=== PATIENT | female | born 1955 | race Caucasian/White ===

== ENCOUNTER 2017-09-01 20:54 | Inpatient (IN) | payer MEDICARE ==
[2017-09-01 21:11] VITALS: BP 190/87; PULSE 87; RESP 20; TEMP 98.9; O2SAT 96
[2017-09-01 21:15] VITALS: RESP 18; O2SAT 96
[2017-09-01] MEDS ORDERED: SODIUM CHLORIDE 0.9% FLUSH 10 ML FLUSH IVF PRN (21:15)
[2017-09-01] MEDS ORDERED: ACETAMINOPHEN 325 MG TAB PO ONE (21:15)
--- NOTE | 2017-09-01 21:17 | PD ---
HPI Chief Complaint: Altered Mental Status Time Seen by Provider: 21:12 Travel History International Travel<30 days: No Contact w/Intl Traveler<30days: No Traveled to known affect area: No History of Present Illness HPI 61-year-old female with history of lupus, CHF, CAD with a cardiac stent, chronic pain on opiates, brought in by EMS for evaluation of fever and depressed mental status. According to EMS the patient had a temp of 101F. They administered IV fluids and Zofran and transported her to the emergency department. Her family believes that she may taken too many of her medications. The patient denies doing this. On arrival she is awake and alert and is in no apparent distress. She has had a cough productive of yellowish sputum over the last couple of days. No hemoptysis. She denies abdominal pain , nausea, or vomiting. No chest pain. PFSH Past Medical History Congestive Heart Failure: Yes COPD: Yes Diminished Hearing: No Hypertension: Yes Medical other: Yes (FIBROMYALGIA, LUPUS ) Respiratory: Yes Past Surgical History Cardiac Surgery: Yes (STENT) Social History Alcohol Use: No Tobacco Use: No Substance Use: No Allergies-Medications (Allergen,Severity, Reaction): Coded Allergies: Penicillins (Verified Allergy, Intermediate, 09/01/17) Reported Meds & Prescriptions Reported Meds & Active Scripts Active Reported Prednisone (21) 10 mg tab Dose Pack (Prednisone) 10 Mg Pack 10 Mg PO DIRECTED Nitrostat SL (Nitroglycerin) 0.4 Mg Subl 0.4 Mg SL DIRECTED PRN 1 tablet under the tongue as needed for chest pain. Repeat every 5 minutes for a total of 3 DOSES or call 911 if NO relief. Morphabond ER 12 HR (Morphine Sulfate) 100 Mg Tab 100 Mg PO Q12H Lasix (Furosemide) 20 Mg Tab 20 Mg PO DAILY Xanax (Alprazolam) 0.5 Mg Tab 0.5 Mg PO Q6H PRN Zofran (Ondansetron HCl) 4 Mg Tab 4 Mg PO Q6HR PRN Gabapentin 600 Mg Tab 600 Mg PO HS Gabapentin 300 Mg Cap 300 Mg PO BID Plavix (Clopidogrel Bisulfate) 75 Mg Tab 75 Mg PO DAILY Aspir-81 (Aspirin) 81 Mg Tabdr Amlodipine (Amlodipine Besylate) 2.5 Mg Tab 2.5 Mg PO DAILY Review of Systems Except as stated in HPI: all other systems reviewed are Neg Physical Exam Narrative GENERAL: Well-developed, thin, comfortable, no apparent distress, GCS 15. SKIN: Focused skin assessment warm/dry. No rash. HEAD: Atraumatic. Normocephalic. EYES: Pupils equal and round. No scleral icterus. No injection or drainage. ENT: Mucous membranes pink and moist. NECK: Trachea midline. No JVD. No nuchal rigidity. CARDIOVASCULAR: Regular rate and rhythm. No murmur appreciated. RESPIRATORY: No accessory muscle use. Bibasilar rales. No wheezes or rhonchi. Breath sounds equal bilaterally. GASTROINTESTINAL: Abdomen soft, non-tender, nondistended. Hepatic and splenic margins not palpable. MUSCULOSKELETAL: No obvious deformities. No clubbing. No cyanosis. Moderate bilateral lower extremity edema from foot to knee. NEUROLOGICAL: Awake and alert. No obvious cranial nerve deficits. Motor grossly within normal limits. Normal speech. PSYCHIATRIC: Appropriate mood and affect; insight and judgment normal. Data Data Last Documented VS Vital Signs Date Time Temp Pulse Resp B/P (MAP) Pulse Ox O2 Delivery O2 Flow Rate FiO2 09/01/17 22:08 83 16 176/78 (110) 95 Nasal Cannula 2.00 09/01/17 21:11 98.9 Orders Orders Complete Blood Count With Diff (09/01/17 21:12) Comprehensive Metabolic Panel (09/01/17 21:12) B-Type Natriuretic Peptide (09/01/17 21:12) Act Partial Throm Time (Ptt) (09/01/17 21:12) Ckmb (Isoenzyme) Profile (09/01/17 21:12) Troponin I (09/01/17 21:12) Influenzae A/B Antigen (09/01/17 21:12) Blood Culture (09/01/17 21:12) Iv Access Insert/Monitor (09/01/17 21:12) Electrocardiogram (09/01/17 21:12) Ecg Monitoring (09/01/17 21:12) Oximetry (09/01/17 21:12) Oxygen Administration (09/01/17 21:12) Chest, Single Ap (09/01/17 21:12) Sodium Chloride 0.9% Flush (Ns Flush) (09/01/17 21:15) Acetaminophen (Tylenol) (09/01/17 21:15) Urinalysis - C+S If Indicated (09/01/17 22:37) Dextrose 50% In Sky (Vial) Inj (D50w (Vi (09/01/17 22:45) Insulin Human Regular Inj (Novolin R Inj (09/01/17 22:45) Sodium Polysty Sulfate Liq (Kayexalate L (09/01/17 22:45) Admit Order (Ed Use Only) (09/01/17 22:47) Labs Laboratory Tests Test 09/01/17 21:20 09/01/17 22:38 White Blood Count 10.3 TH/MM3 Red Blood Count 3.19 MIL/MM3 Hemoglobin 9.6 GM/DL Hematocrit 29.3 % Mean Corpuscular Volume 91.8 FL Mean Corpuscular Hemoglobin 30.0 PG Mean Corpuscular Hemoglobin Concent 32.7 % Red Cell Distribution Width 14.3 % Platelet Count 212 TH/MM3 Mean Platelet Volume 8.4 FL Neutrophils (%) (Auto) 86.6 % Lymphocytes (%) (Auto) 8.0 % Monocytes (%) (Auto) 3.6 % Eosinophils (%) (Auto) 1.3 % Basophils (%) (Auto) 0.5 % Neutrophils # (Auto) 8.9 TH/MM3 Lymphocytes # (Auto) 0.8 TH/MM3 Monocytes # (Auto) 0.4 TH/MM3 Eosinophils # (Auto) 0.1 TH/MM3 Basophils # (Auto) 0.1 TH/MM3 CBC Comment DIFF FINAL Differential Comment Activated Partial Thromboplast Time 24.3 SEC Blood Urea Nitrogen 26 MG/DL Creatinine 1.80 MG/DL Random Glucose 94 MG/DL Total Protein 6.9 GM/DL Albumin 2.4 GM/DL Calcium Level 7.5 MG/DL Alkaline Phosphatase 152 U/L Aspartate Amino Transf (AST/SGOT) 19 U/L Alanine Aminotransferase (ALT/SGPT) 10 U/L Total Bilirubin LESS THAN 0.1 MG/DL Sodium Level 138 MEQ/L Potassium Level 6.1 MEQ/L Chloride Level 112 MEQ/L Carbon Dioxide Level 20.8 MEQ/L Anion Gap 5 MEQ/L Estimat Glomerular Filtration Rate 28 ML/MIN Total Creatine Kinase 95 U/L Troponin I LESS THAN 0.02 NG/ML B-Type Natriuretic Peptide 209 PG/ML Urine Color LIGHT-YELLOW Urine Turbidity CLEAR Urine pH 7.5 Urine Specific [place] 1.009 Urine Protein 300 mg/dL Urine Glucose (UA) NEG mg/dL Urine Ketones NEG mg/dL Urine Occult Blood MOD Urine Nitrite NEG Urine Bilirubin NEG Urine Urobilinogen LESS THAN 2.0 MG/DL Urine Leukocyte Esterase NEG Urine RBC 34 /hpf Urine WBC LESS THAN 1 /hpf Urine Squamous Epithelial Cells <1 /hpf Urine Hyaline Casts 1 /lpf Microscopic Urinalysis Comment CULT NOT INDICATED MDM Medical Decision Making Medical Screen Exam Complete: Yes Emergency Medical Condition: Yes Interpretation(s) EKG: Sinus, rate 80, leftward axis, normal intervals, no acute ischemic abnormality. Differential Diagnosis Influenza, pneumonia, CHF/pulmonary edema, metabolic abnormality, medication overdose Narrative Course Initial vital signs show heart rate 87, blood pressure 190/87, pulse ox 96% on room air, oral temp of 98.8F. CBC: WBC 10.3, hemoglobin 9.6, hematocrit 29.3, platelets 212, neutrophils 86.6% . He is remarkable for potassium 6.1, bicarbonate 20.8, BUN 26, cranny 1.8, GFR 28. Cardiac enzymes are negative. BNP is 209. Fluids is negative. Chest x-ray: Mild bibasilar atelectasis. Patient reports history of baseline anemia. She does not know what her normal H &H is. Her stool is heme negative and brown. Chest reports known history of some renal insufficiency, however she does not know her baseline. She has never required dialysis. She'll be treated for hyperkalemia with insulin, D50, and Kayexalate. She will be admitted for further treatment and evaluation of hyperkalemia with renal insufficiency. Case discussed with hospitalist Dr. Klein who will admit the patient to her service. Diagnosis Primary Impression: Renal insufficiency Additional Impressions: Hyperkalemia Anemia Qualified Codes: D64.9 - Anemia, unspecified Admitting Information Admitting Physician Requests: Estevan Gonzales MD Sep 01, 2017 21:17
[2017-09-01 21:34] LABS: AUTOMATED NEUTROPHIL # 8.9 TH/MM3 (1.8-7.7); BASOPHIL # 0.1 TH/MM3 (0-0.2); BASOPHIL % 0.5 % (0.0-2.0); EOSINOPHIL # 0.1 TH/MM3 (0-0.4); EOSINOPHIL % 1.3 % (0.0-4.0); HEMATOCRIT 29.3 % (35.0-46.0); HEMOGLOBIN 9.6 GM/DL (11.6-15.3); LYMPHOCYTE # 0.8 TH/MM3 (1.0-4.8); MEAN CELL VOLUME 91.8 FL (80.0-100.0); MEAN CORPUSCULAR HGB CONC 32.7 % (32.0-36.0); MEAN PLATELET VOLUME 8.4 FL (7.0-11.0); MONO % 3.6 % (0.0-8.0); MONOCYTE # 0.4 TH/MM3 (0-0.9); NEUT % 86.6 % (16.0-70.0); PLATELET COUNT 212 TH/MM3 (150-450); RED BLOOD COUNT 3.19 MIL/MM3 (4.00-5.30); RED CELL DISTRIBUTION WIDTH 14.3 % (11.6-17.2); WHITE BLOOD COUNT 10.3 TH/MM3 (4.0-11.0)
[2017-09-01] MEDS ORDERED: PRED10PA PO (21:41)
[2017-09-01] MEDS ORDERED: GABA600T PO (21:41)
[2017-09-01] MEDS ORDERED: NITR0.4S SL (21:41)
[2017-09-01] MEDS ORDERED: AMLO2.5T PO (21:41)
[2017-09-01] MEDS ORDERED: ASPI81TA81 (21:41)
[2017-09-01] MEDS ORDERED: FURO1TAB62 PO (21:41)
[2017-09-01] MEDS ORDERED: GABA300C5 PO (21:41)
[2017-09-01] MEDS ORDERED: MORP100T53 PO (21:41)
[2017-09-01] MEDS ORDERED: PLAV75TA29 PO (21:41)
[2017-09-01] MEDS ORDERED: ALPR.5 PO (21:41)
[2017-09-01] MEDS ORDERED: ZOFR4TAB PO (21:41)
--- NOTE | 2017-09-01 21:51 | RADRPT ---
EXAM DATE/TIME: 09/01/2017 21:30 [facility] COMPARISON: No previous studies available for comparison. INDICATIONS : Weakness, Short of Breath MEDICAL HISTORY : None. SURGICAL HISTORY : None. ENCOUNTER: Initial ACUITY: 1 day PAIN SCORE: 0/10 LOCATION: chest FINDINGS: Minimal atelectasis seen in both lung bases above costophrenic angle. Focal consolidation is not seen . Heart and mediastinum are unremarkable for technique. CONCLUSION: Mild bibasilar atelectasis. Silver Beckett MD on September 01, 2017 at 21:49 Board Certified Radiologist. This report was verified electronically.
[2017-09-01 21:53] LABS: ALBUMIN 2.4 GM/DL (3.4-5.0); AST (GOT) 19 U/L (15-37); BICARBONATE 20.8 MEQ/L (21.0-32.0); BLOOD UREA NITROGEN 26 MG/DL (7-18); CALCIUM 7.5 MG/DL (8.5-10.1); CHLORIDE 112 MEQ/L (98-107); GLOMERULAR FILTRATION RATE 28 ML/MIN (>89); GLUCOSE,RANDOM 94 MG/DL (74-106); SODIUM (NA) 138 MEQ/L (136-145)
[2017-09-01 21:58] LABS: ALKALINE PHOSPHATASE 152 U/L (45-117); ALT (GPT) 10 U/L (10-53); TOTAL BILIRUBIN ADULT LESS THAN 0.1 MG/DL (0.2-1.0); TOTAL PROTEIN 6.9 GM/DL (6.4-8.2); TROPONIN I LESS THAN 0.02 NG/ML (0.02-0.05)
[2017-09-01 22:08] VITALS: BP 176/78; PULSE 83; RESP 16; O2SAT 95
[2017-09-01] MEDS ORDERED: INSULIN HUMAN REGULAR 1,000 UNITS/10 ML VIAL IV PUSH ONE (22:45)
[2017-09-01] MEDS ORDERED: SODIUM POLYSTYRENE SULFONATE SUSP 15 GM/60 ML CUP PO ONE (22:45)
[2017-09-01] MEDS ORDERED: DEXTROSE 50% IN WATER 50 ML VIAL(D50) IV PUSH ONE (22:45)
[2017-09-01 23:05] LABS: BILIRUBIN, URINE NEG (NEG); BLOOD, URINE MOD (NEG); GLUCOSE,URINE NEG (NEG); HYALINE CAST, URINE 1 /lpf (RARE); KETONE, URINE NEG (NEG); NITRITE,URINE NEG (NEG); PH, URINE 7.5 (5.0-8.5); SQUAMOUS EPITHELIAL CELL URINE <1 /hpf (0-5); URINE COLOR LIGHT-YELLOW (YELLW/STRAW); URINE LEUKOCYTE ESTERASE NEG (NEG)
[2017-09-01] MEDS ORDERED: SODIUM CHLORIDE 0.9% FLUSH 10 ML FLUSH IV FLUSH PRN (23:15)
[2017-09-01] MEDS ORDERED: NALOXONE HCL 0.4 MG/ML AMP IV PUSH PRN (23:15)
[2017-09-01] MEDS ORDERED: ACETAMINOPHEN 325 MG TAB PO PRN (23:15)
[2017-09-01 23:35] VITALS: BP 162/93; PULSE 83; RESP 16; O2SAT 93
--- NOTE | 2017-09-01 23:52 | HHI.HP ---
HPI Service [facility] Primary Care Physician Non-Staff Admission Diagnosis renal insufficiency, hyperkalemia Diagnoses: Travel History International Travel<30 Days: No Contact w/Intl Traveler <30 Da: No Traveled to Known Affected Are: No History of Present Illness 61-year-old female with multiple medical comorbidities (see past medical history for details) presents to the emergency department for evaluation of multiple complaints. Per the patient's daughter, she had fever/chills earlier in the day. She then went to lay down without her oxygen for approximately 1 hour and became disoriented and confused. Her daughter reports she was mumbling and not making sense. She was brought to the emergency room for evaluation. The patient denies chest pain/shortness of breath. She endorses fatigue and chronic pain no worse than usual. On evaluation in the emergency department the patient was found to be hyperkalemic with a potassium of 6.1. Review of Systems Except as stated in HPI: all other systems reviewed are Neg Past Family Social History Past Medical History Fibromyalgia Lupus COPD on 2 L nasal cannula CAD CHF HTN CK D stage III Rheumatoid arthritis Seizure disorder (last seizure 25 years ago) Macular degeneration Past Surgical History Pleurodesis Appendectomy Tonsillectomy Bilateral oophorectomy Reported Medications Reported Meds & Active Scripts Active Reported Prednisone (21) 10 mg tab Dose Pack (Prednisone) 10 Mg Pack 10 Mg PO DIRECTED Nitrostat SL (Nitroglycerin) 0.4 Mg Subl 0.4 Mg SL DIRECTED PRN 1 tablet under the tongue as needed for chest pain. Repeat every 5 minutes for a total of 3 DOSES or call 911 if NO relief. Morphabond ER 12 HR (Morphine Sulfate) 100 Mg Tab 100 Mg PO Q12H Lasix (Furosemide) 20 Mg Tab 20 Mg PO DAILY Xanax (Alprazolam) 0.5 Mg Tab 0.5 Mg PO Q6H PRN Zofran (Ondansetron HCl) 4 Mg Tab 4 Mg PO Q6HR PRN Gabapentin 600 Mg Tab 600 Mg PO HS Gabapentin 300 Mg Cap 300 Mg PO BID Plavix (Clopidogrel Bisulfate) 75 Mg Tab 75 Mg PO DAILY Aspir-81 (Aspirin) 81 Mg Tabdr Amlodipine (Amlodipine Besylate) 2.5 Mg Tab 2.5 Mg PO DAILY Allergies: Coded Allergies: Penicillins (Verified Allergy, Intermediate, 09/01/17) Family History Negative for CAD/DM Social History Quit tobacco 6 years ago. Denies alcohol. Positive marijuana. Denies other illicit drugs. Physical Exam Vital Signs Vital Signs Date Time Temp Pulse Resp B/P (MAP) Pulse Ox O2 Delivery O2 Flow Rate FiO2 09/01/17 23:35 83 16 162/93 (116) 93 Nasal Cannula 2.00 09/01/17 22:08 83 16 176/78 (110) 95 Nasal Cannula 2.00 09/01/17 21:15 18 96 09/01/17 21:11 98.9 87 20 190/87 (121) 96 Room Air 09/01/17 21:05 18 Physical Exam GENERAL: Thin, female sitting up in bed SKIN: No rashes, ecchymoses or lesions. Cool and dry. HEAD: Atraumatic. Normocephalic. No temporal or scalp tenderness. EYES: Pupils equal round and reactive. Extraocular motions intact. No scleral icterus. No injection or drainage. ENT: Nose without bleeding, purulent drainage or septal hematoma. Throat without erythema, tonsillar hypertrophy or exudate. Uvula midline. Airway patent. NECK: Trachea midline. No JVD or lymphadenopathy. Supple, nontender, no meningeal signs. CARDIOVASCULAR: Regular rate and rhythm without murmurs, gallops, or rubs. RESPIRATORY: Clear to auscultation. Breath sounds equal bilaterally. No wheezes , rales, or rhonchi. GASTROINTESTINAL: Abdomen soft, non-tender, nondistended. No hepato-splenomegaly , or palpable masses. No guarding. MUSCULOSKELETAL: Extremities without clubbing, cyanosis, or edema. No joint tenderness, effusion, or edema noted. No calf tenderness. NEUROLOGICAL: Awake and alert. Cranial nerves II through XII intact. Motor and sensory grossly within normal limits. Normal speech. Laboratory Laboratory Tests Test 09/01/17 21:20 09/01/17 22:38 White Blood Count 10.3 Red Blood Count 3.19 Hemoglobin 9.6 Hematocrit 29.3 Mean Corpuscular Volume 91.8 Mean Corpuscular Hemoglobin 30.0 Mean Corpuscular Hemoglobin Concent 32.7 Red Cell Distribution Width 14.3 Platelet Count 212 Mean Platelet Volume 8.4 Neutrophils (%) (Auto) 86.6 Lymphocytes (%) (Auto) 8.0 Monocytes (%) (Auto) 3.6 Eosinophils (%) (Auto) 1.3 Basophils (%) (Auto) 0.5 Neutrophils # (Auto) 8.9 Lymphocytes # (Auto) 0.8 Monocytes # (Auto) 0.4 Eosinophils # (Auto) 0.1 Basophils # (Auto) 0.1 CBC Comment DIFF FINAL Differential Comment Activated Partial Thromboplast Time 24.3 Blood Urea Nitrogen 26 Creatinine 1.80 Random Glucose 94 Total Protein 6.9 Albumin 2.4 Calcium Level 7.5 Alkaline Phosphatase 152 Aspartate Amino Transf (AST/SGOT) 19 Alanine Aminotransferase (ALT/SGPT) 10 Total Bilirubin LESS THAN 0.1 Sodium Level 138 Potassium Level 6.1 Chloride Level 112 Carbon Dioxide Level 20.8 Anion Gap 5 Estimat Glomerular Filtration Rate 28 Total Creatine Kinase 95 Troponin I LESS THAN 0.02 B-Type Natriuretic Peptide 209 Urine Color LIGHT-YELLOW Urine Turbidity CLEAR Urine pH 7.5 Urine Specific [place] 1.009 Urine Protein 300 Urine Glucose (UA) NEG Urine Ketones NEG Urine Occult Blood MOD Urine Nitrite NEG Urine Bilirubin NEG Urine Urobilinogen LESS THAN 2.0 Urine Leukocyte Esterase NEG Urine RBC 34 Urine WBC LESS THAN 1 Urine Squamous Epithelial Cells <1 Urine Hyaline Casts 1 Microscopic Urinalysis Comment CULT NOT INDICATED Date/Time Source Procedure Growth Status 09/01/17 21:20 Blood Peripheral Aerobic Blood Culture Pending Received 09/01/17 21:20 Blood Peripheral Anaerobic Blood Culture Pending Received 09/01/17 21:20 Nasal Washing Influenza Types A,B Antigen (JAKE) - Final NEGATIVE FOR FLU A AND B ANTIGEN.... Complete Result Diagram: 09/01/17211909/01/172119 Caprini VTE Risk Assessment Caprini VTE Risk Assessment: Mod/High Risk (score >= 2) Caprini Risk Assessment Model Point Value = 1 Point Value = 2 Point Value = 3 Point Value = 5 Age 41-60 Minor surgery BMI > 25 kg/m2 Swollen legs Varicose veins or History of unexplained or recurrent spontaneous Oral contraceptives or hormone replacement Sepsis (< 1 month) Serious lung disease, including pneumonia (< 1 month) Abnormal pulmonary function Acute myocardial infarction Congestive heart failure (< 1 month) History of inflammatory bowel disease Medical patient at bed rest Age 61-74 Arthroscopic surgery Major open surgery (> 45 min) Laparoscopic surgery (> 45 min) Malignancy Confined to bed (> 72 hours) Immobilizing plaster cast Central venous access Age >= 75 History of VTE Family history of VTE Factor V Leiden Prothrombin [id number] Lupus anticoagulant Anticardiolipin antibodies Elevated serum homocysteine Heparin-induced thrombocytopenia Other congenital or acquired thrombophilia Stroke (< 1 month) Elective arthroplasty Hip, pelvis, or leg fracture Acute spinal cord injury (< 1 month) Prophylaxis Regimen Total Risk Factor Score Risk Level Prophylaxis Regimen 0-1 Low Early ambulation 2 Moderate Order ONE of the following: *Sequential Compression Device (SCD) *Heparin 5000 units SQ BID 3-4 Higher Order ONE of the following medications: *Heparin 5000 units SQ TID *Enoxaparin/Lovenox 40 mg SQ daily (WT < 150 kg, CrCl > 30 mL/min) *Enoxaparin/Lovenox 30 mg SQ daily (WT < 150 kg, CrCl > 10-29 mL/min) *Enoxaparin/Lovenox 30 mg SQ BID (WT < 150 kg, CrCl > 30 mL/min) AND/OR *Sequential Compression Device (SCD) 5 or more Highest Order ONE of the following medications: *Heparin 5000 units SQ TID (Preferred with Epidurals) *Enoxaparin/Lovenox 40 mg SQ daily (WT < 150 kg, CrCl > 30 mL/min) *Enoxaparin/Lovenox 30 mg SQ daily (WT < 150 kg, CrCl > 10-29 mL/min) *Enoxaparin/Lovenox 30 mg SQ BID (WT < 150 kg, CrCl > 30 mL/min) AND *Sequential Compression Device (SCD) Assessment and Plan Assessment and Plan Assessment/plan: 1. Hyperkalemia Potassium 6.1 EKG without signs of global peaked T waves, personally reviewed Status post insulin, D50 and Kayexalate 1 in the emergency department Continue Kayexalate Repeat BMP in a.m. Anticipate discharge to home tomorrow if potassium improves 2. Hypertension/CHF/CAD Continue home amlodipine, Lasix, Plavix 3. Fibromyalgia/lupus/rheumatoid arthritis/chronic pain Continue home morphine dosing Continue home gabapentin 4. CKD Cr 1.80, baseline unknown Monitor renal function FEN Heart healthy diet Electrolytes: as above Heparin [place],Marguerite Emilia MD Sep 01, 2017 23:52
[2017-09-02] VITALS (9 sets, daily range): BP systolic 115–183; BP diastolic 68–90; PULSE 63–80; RESP 15–18; TEMP 97.5–99.5; O2SAT 94–99
[2017-09-02] MEDS: HEPARIN SODIUM - SQ 10,000 UNITS/ML VIAL SQ SCH ×4 (02:15→23:58)
[2017-09-02 05:16] LABS: AUTOMATED NEUTROPHIL # 6.2 TH/MM3 (1.8-7.7); BASOPHIL % 0.6 % (0.0-2.0); EOSINOPHIL # 0.1 TH/MM3 (0-0.4); EOSINOPHIL % 1.5 % (0.0-4.0); HEMATOCRIT 25.1 % (35.0-46.0); HEMOGLOBIN 8.1 GM/DL (11.6-15.3); LYMPH % 16.8 % (9.0-44.0); LYMPHOCYTE # 1.4 TH/MM3 (1.0-4.8); MEAN CELL VOLUME 92.5 FL (80.0-100.0); MEAN CORPUSCULAR HEMOGLOBIN 30.1 PG (27.0-34.0); MEAN CORPUSCULAR HGB CONC 32.5 % (32.0-36.0); MEAN PLATELET VOLUME 8.8 FL (7.0-11.0); MONOCYTE # 0.4 TH/MM3 (0-0.9); NEUT % 76.1 % (16.0-70.0); PLATELET COUNT 187 TH/MM3 (150-450); RED BLOOD COUNT 2.71 MIL/MM3 (4.00-5.30); RED CELL DISTRIBUTION WIDTH 14.3 % (11.6-17.2); WHITE BLOOD COUNT 8.2 TH/MM3 (4.0-11.0)
[2017-09-02 05:31] LABS: BICARBONATE 22.8 MEQ/L (21.0-32.0); CALCIUM 7.4 MG/DL (8.5-10.1); CREATININE 2.17 MG/DL (0.50-1.00)
[2017-09-02 05:51] LABS: CALCIUM-PROTEIN CORRECTED 8.1 MG/DL (8.5-10.1); TOTAL PROTEIN 5.9 GM/DL (6.4-8.2)
[2017-09-02] MEDS: SODIUM POLYSTYRENE SULFONATE SUSP 15 GM/60 ML CUP PO SCH ×4 (08:04→19:44)
[2017-09-02] MEDS: FUROSEMIDE 20 MG TAB PO SCH (08:07)
[2017-09-02] MEDS: SODIUM CHLORIDE 0.9% FLUSH 10 ML FLUSH IV FLUSH SCH ×2 (08:07→19:44)
[2017-09-02] MEDS: amLODIPine BESYLATE 5 MG TAB PO SCH (08:07)
[2017-09-02] MEDS: CLOPIDOGREL 75 MG TAB PO SCH (08:07)
[2017-09-02] MEDS: GABAPENTIN 300 MG CAP PO SCH ×3 (08:07→19:44)
[2017-09-02] MEDS: ONDANSETRON HCL 4 MG/2 ML VIAL IVP PRN ×2 (08:20→19:44)
[2017-09-02] MEDS ORDERED: SODIUM POLYSTYRENE SULFONATE SUSP 15 GM/60 ML CUP PO ONE (09:00)
[2017-09-02] MEDS ORDERED: CALCIUM GLUCONATE INJ 1 GM in SODIUM CHLORIDE 0.9% INJ 100 ML IV ONE (09:00)
--- NOTE | 2017-09-02 09:57 | HHI.PR ---
Subjective Remarks Follow-up for hyperkalemia and acute renal failure Patient very upset because she wants to go home today. She stated that she was in [place] and does not want to be away from her . Patient stated that her daughter is here in town with her. She denies any chest pain, shortness of breathing, palpitation, lightheadedness, dizziness. Patient stated that her daughter brought her here because she thought she was acting "funny." Call labs in regards to potassium level 6.1 that was drawn twice. They stated that sample was not hemolyzed. Patient stated that she is urinating but it has decreased. Objective Vitals Vital Signs Date Time Temp Pulse Resp B/P (MAP) Pulse Ox O2 Delivery O2 Flow Rate FiO2 09/02/17 08:45 97.8 65 16 157/74 (101) 99 09/02/17 07:24 63 09/02/17 04:12 98.2 77 16 150/76 (100) 94 09/02/17 00:26 97.9 75 17 146/71 (96) 96 09/01/17 23:59 09/01/17 23:35 83 16 162/93 (116) 93 Nasal Cannula 2.00 09/01/17 22:08 83 16 176/78 (110) 95 Nasal Cannula 2.00 09/01/17 21:15 18 96 09/01/17 21:11 98.9 87 20 190/87 (121) 96 Room Air 09/01/17 21:05 18 I/O 09/01/17 09/01/17 09/01/17 09/02/17 09/02/17 09/02/17 07:00 15:00 23:00 07:00 15:00 23:00 Intake Total 300 ml Balance 300 ml Intake Oral 300 ml Result Diagram: 09/02/17 0438 09/02/17 0438 Objective Remarks GENERAL: in NAD CARDIOVASCULAR: Regular rate and rhythm without murmurs, gallops, or rubs. RESPIRATORY: Breath sounds equal bilaterally. No accessory muscle use. GASTROINTESTINAL: Abdomen soft, non-tender, nondistended. MUSCULOSKELETAL: No cyanosis, or edema. BACK: Nontender without obvious deformity. No CVA tenderness. Medications and IVs Current Medications Sodium Chloride (NS Flush) 2 ml UNSCH PRN IVF FLUSH AFTER USING IV ACCESS; Start 09/01/17 at 21:15; Stop 09/01/17 at 23:18; Status DC Acetaminophen (Tylenol) 650 mg ONCE ONCE PO Last administered on 09/01/17at 21: 34; Start 09/01/17 at 21:15; Stop 09/01/17 at 21:16; Status DC Dextrose (D50w (Vial) Inj) 50 ml ONCE ONCE IV PUSH Last administered on at 23:14; Start 09/01/17 at 22:45; Stop 09/01/17 at 22:46; Status DC Insulin Human Regular (NovoLIN R INJ) 4 units ONCE ONCE IV PUSH Last administered on 09/01/17at 23:15; Start 09/01/17 at 22:45; Stop 09/01/17 at 22:46; Status DC Sodium Polystyrene Sulfonate (Kayexalate Liq) 15 gm ONCE ONCE PO Last administered on 09/01/17at 23:15; Start 09/01/17 at 22:45; Stop 09/01/17 at 22:46; Status DC Sodium Chloride (NS Flush) 2 ml UNSCH PRN IV FLUSH FLUSH AFTER USING IV ACCESS ; Start 09/01/17 at 23:15 Sodium Chloride (NS Flush) 2 ml BID IV FLUSH Last administered on 09/02/17at 08: 07; Start 09/02/17 at 09:00 Acetaminophen (Tylenol) 650 mg Q4H PRN PO TEMP > 100.4; Start 09/01/17 at 23:15 Ondansetron HCl (Zofran Inj) 4 mg Q6H PRN IVP NAUSEA OR VOMITING Last administered on 09/02/17at 08:20; Start 09/01/17 at 23:15 Heparin Sodium (Porcine) (Heparin Inj) 5,000 units Q8H SQ Last administered on 09/02/17at 08:07; Start 09/01/17 at 23:15 Naloxone HCl (Narcan Inj) 0.4 mg UNSCH PRN IV PUSH SEE LABEL COMMENTS; Start at 23:15 Sodium Polystyrene Sulfonate (Kayexalate Liq) 15 gm QID PO Last administered on 09/02/17at 08:04; Start 09/02/17 at 09:00 Amlodipine Besylate (Norvasc) 2.5 mg DAILY PO Last administered on 09/02/17at 08: 07; Start 09/02/17 at 09:00 Clopidogrel Bisulfate (Plavix) 75 mg DAILY PO Last administered on 09/02/17at 08: 07; Start 09/02/17 at 09:00 Furosemide (Lasix) 20 mg DAILY PO Last administered on 09/02/17at 08:07; Start at 09:00 Gabapentin (Neurontin) 300 mg BID PO Last administered on 09/02/17at 08:07; Start 09/02/17 at 09:00 Gabapentin (Neurontin) 600 mg HS PO ; Start 09/02/17 at 21:00 Morphine Sulfate (Oramorph Sr) 100 mg Q12H PO ; Start 09/02/17 at 00:00 Sodium Polystyrene Sulfonate (Kayexalate Liq) 15 gm ONCE ONCE PO ; Start at 09:00; Stop 09/02/17 at 09:03; Status DC Calcium Gluconate 1 gm/Sodium Chloride 110 ml @ 110 mls/hr ONCE ONCE IV ; Start 09/02/17 at 09:00; Stop 09/02/17 at 09:59 A/P Assessment and Plan This is a 61-year-old female who was brought in by her daughter due to odd behavior found to have hyper kalemia Hyperkalemia -On admission Potassium 6.1. EKG without signs of global peaked T waves, personally reviewed -Status post insulin, D50 and Kayexalate 1 in the emergency department and potassium continues to be 6.1 with worsening renal function. -Will transfer patient to [facility] are [facility] for close monitoring. Acute renal failure -No baseline. -On admission creatinine 1.8 now 2.17. -Will continue with IV fluids, strict ins and outs, and avoid nephrotoxins. Continue to trend creatinine. We'll get a renal ultrasound. Hypertension/CHF/CAD -Continue home amlodipine, Lasix, Plavix Fibromyalgia/lupus/rheumatoid arthritis/chronic pain -Continue home morphine dosing -Continue home gabapentin Discharge Planning Due to worsening kidney function and potassium continue to be elevated at 6.1 despite treatment will need to monitor patient closely and MedSurg or CIC. Patient will require at least 1-2 more days of hospitalization. She does meet inpatient criteria. Nancy Price MD Sep 02, 2017 09:57
--- NOTE | 2017-09-02 10:08 | RADRPT ---
EXAM DATE/TIME: 09/02/2017 09:14 [facility] COMPARISON: No previous studies available for comparison. INDICATIONS : Increased BUN/Creatnine. MEDICAL HISTORY : Congestive heart failure. Hypertension. Chronic obstructive pulmonary disease. Back pain. Renal insuf ficiency. Depression. Lupus. Fibromyalgia. SURGICAL HISTORY : Cardiac stent. ENCOUNTER: Initial ACUITY: 2 days PAIN SCORE: 2/10 LOCATION: Bilateral flank MEASUREMENTS: RIGHT KIDNEY: 11.3 x x 4.4 cm LEFT KIDNEY: 9.7 x 3.3 x 4.0 cm FINDINGS: RIGHT KIDNEY: Renal cortex is normal in thickness and increased echotexture. Extrarenal pelvis on the right. No hyd ronephrosis, stone, or mass. Simple cyst lower pole measures 13 x 12 x 10 mm. LEFT KIDNEY: Renal cortex is normal in thickness and increased echotexture. No hydronephrosis, stone, or mass. S imple cysts lower pole measures 14 x 9 x 10 mm and 11 x 10 x 10 mm. BLADDER: Within normal limits given the degree of distension. CONCLUSION: 1. Slightly echogenic and is which can be seen with medical renal disease. 2. Bilateral renal cysts. Pacheco Viera MD on September 02, 2017 at 10:04 Board Certified Radiologist. This report was verified electronically.
[2017-09-02] MEDS: MORPHINE SULFATE 100 MG CONTROLLED RELEASE TAB PO SCH ×2 (11:33)
--- NOTE | 2017-09-02 12:13 | EKG ---
Date Performed: 09/01/2017 Time Performed: 21:30:56 PTAGE: 61 years EKG: Sinus rhythm POSSIBLE LEFT ATRIAL ENLARGEMENT MARKED LEFT AXIS DEVIATION Poor initial anterior forces which may b e normal variant ABNORMAL ECG NO PREVIOUS TRACING DOCTOR: Kenton Peralta Interpretating Date/Time 09/02/2017 12:12:20
[2017-09-02] MEDS: PROMETHAZINE HCL 25 MG SUPP RECTAL PRN (12:14)
[2017-09-02] MEDS ORDERED: BUTA1CAP PO (15:35)
[2017-09-02] MEDS ORDERED: PERC5TAB12 PO (15:35)
[2017-09-02] MEDS ORDERED: DEXTROSE 50% IN WATER 50 ML SYRINGE IV PUSH ONE (16:15)
[2017-09-02] MEDS ORDERED: CALCIUM GLUCONATE INJ 1 GM in DEXTROSE 5% IN WATER 100ML INJ 100 ML IV ONE ×2 (16:15)
[2017-09-02] MEDS ORDERED: INSULIN HUMAN REGULAR 1,000 UNITS/10 ML VIAL IV PUSH ONE (16:15)
[2017-09-02] MEDS ORDERED: hydrALAZINE HCL 20 MG/ML VIAL IV PUSH PRN (16:30)
[2017-09-02] MEDS: ACETAMIN 325 MG/BUTALBITAL 50 MG/CAFFEINE 40 MG TAB PO PRN (18:27)
[2017-09-02] MEDS ORDERED: [UNRECOGNIZED DRUG - OTHER] PO PRN (18:30)
[2017-09-02] MEDS ORDERED: cloNIDine HCL 0.1 MG TAB PO ONE (21:15)
[2017-09-02] MEDS ORDERED: MORPHINE SULFATE 30 MG CONTROLLED RELEASE TAB PO ONE (23:45)
[2017-09-02] MEDS ORDERED: MORPHINE SULFATE 15 MG CONTROLLED RELEASE TAB PO ONE (23:45)
[2017-09-03] VITALS (8 sets, daily range): BP systolic 137–195; BP diastolic 67–92; PULSE 69–87; RESP 16–22; TEMP 98.6–100.8; O2SAT 95–98
[2017-09-03 04:38] LABS: HEMATOCRIT 25.1 % (35.0-46.0); HEMOGLOBIN 8.2 GM/DL (11.6-15.3); MEAN CELL VOLUME 91.2 FL (80.0-100.0); MEAN CORPUSCULAR HEMOGLOBIN 29.9 PG (27.0-34.0); MEAN CORPUSCULAR HGB CONC 32.8 % (32.0-36.0); MEAN PLATELET VOLUME 8.4 FL (7.0-11.0); PLATELET COUNT 178 TH/MM3 (150-450); RED BLOOD COUNT 2.75 MIL/MM3 (4.00-5.30); RED CELL DISTRIBUTION WIDTH 14.4 % (11.6-17.2)
[2017-09-03 04:58] LABS: COMPLEMENT C3 65 MG/DL (90-180); COMPLEMENT C4 17 MG/DL (10-40)
[2017-09-03 05:01] LABS: BICARBONATE 21.6 MEQ/L (21.0-32.0); CALCIUM 7.3 MG/DL (8.5-10.1); CREATININE 2.32 MG/DL (0.50-1.00)
[2017-09-03 05:17] LABS: CALCIUM-PROTEIN CORRECTED 7.8 MG/DL (8.5-10.1); TOTAL PROTEIN 6.1 GM/DL (6.4-8.2)
[2017-09-03] MEDS: ONDANSETRON HCL 4 MG/2 ML VIAL IVP PRN ×3 (06:53→16:27)
[2017-09-03] MEDS: HEPARIN SODIUM - SQ 10,000 UNITS/ML VIAL SQ SCH ×3 (06:53→23:29)
[2017-09-03] MEDS: ACETAMIN 325 MG/BUTALBITAL 50 MG/CAFFEINE 40 MG TAB PO PRN ×3 (08:25→20:39)
[2017-09-03] MEDS: SODIUM POLYSTYRENE SULFONATE SUSP 15 GM/60 ML CUP PO SCH ×2 (08:25→08:27)
[2017-09-03] MEDS: CLOPIDOGREL 75 MG TAB PO SCH (08:26)
[2017-09-03] MEDS: GABAPENTIN 300 MG CAP PO SCH ×3 (08:26→20:39)
[2017-09-03] MEDS: amLODIPine BESYLATE 5 MG TAB PO SCH (08:26)
[2017-09-03] MEDS: FUROSEMIDE 20 MG TAB PO SCH (08:26)
[2017-09-03] MEDS: SODIUM CHLORIDE 0.9% FLUSH 10 ML FLUSH IV FLUSH SCH ×2 (08:27→20:41)
[2017-09-03] MEDS ORDERED: amLODIPine BESYLATE 5 MG TAB PO ONE (09:45)
--- NOTE | 2017-09-03 09:58 | HHI.PR ---
Subjective Remarks in no acute distress. had mild headache earlier. denies sob, cough. had a fever earlier. BP trend noted. daughter at the bedside. d/w the RN. Objective Vitals Vital Signs Date Time Temp Pulse Resp B/P (MAP) Pulse Ox O2 Delivery O2 Flow Rate FiO2 09/03/17 09:27 157/86 (109) 09/03/17 09:20 Nasal Cannula 2.00 09/03/17 08:00 100.8 85 22 195/92 (126) 97 09/03/17 04:02 87 09/03/17 04:00 98.9 75 16 137/67 (90) 98 09/03/17 00:00 98.6 72 16 140/68 (92) 98 09/03/17 00:00 69 09/02/17 20:59 Nasal Cannula 2.00 09/02/17 20:00 99.2 76 15 183/86 (118) 99 09/02/17 20:00 74 09/02/17 16:01 97.5 79 16 176/90 (118) 98 09/02/17 15:50 80 09/02/17 12:30 71 09/02/17 11:53 98.0 68 18 136/82 (100) 96 I/O 09/02/17 09/02/17 09/02/17 09/03/17 09/03/17 09/03/17 07:00 15:00 23:00 07:00 15:00 23:00 Intake Total 300 ml 100 ml 110 ml 450 ml Balance 300 ml 100 ml 110 ml 450 ml Intake Oral 300 ml 450 ml IV Total 100 ml 110 ml # Voids 2 # Bowel Movements 0 Result Diagram: 09/03/17 0357 09/03/17 0357 Imaging Last Impressions Renal Ultrasound 09/02/17 0000 Signed Impressions: Service Date/Time: Saturday, September 02, 2017 09:14 - CONCLUSION: 1. Slightly echogenic and is which can be seen with medical renal disease. 2. Bilateral renal cysts. Pacheco Viera MD Chest X-Ray 09/01/172111 Signed Impressions: Service Date/Time: Friday, September 01, 2017 21:30 - CONCLUSION: Mild bibasilar atelectasis. Silver eBckett MD Objective Remarks GENERAL: This is a well-nourished, well-developed patient, in no apparent distress. CARDIOVASCULAR: Regular rate and regular rhythm without murmurs, gallops, or rubs. RESPIRATORY: Clear to auscultation. Breath sounds equal bilaterally. No wheezes , rales, or rhonchi. GASTROINTESTINAL: Abdomen soft, non-tender, nondistended. Normal, active bowel sounds MUSCULOSKELETAL: Extremities without clubbing, cyanosis, or edema. NEURO: Alert & Oriented x4 to person, place, time, situation. Moves all ext x4 Medications and IVs Inpatient Medications Acetaminophen (Tylenol) 650 mg Q4H PRN PO TEMP > 100.4 Last administered on 09/02 16:57; Start 09/01/17 at 23:15 Acetaminophen/ Butalbital/ Caffeine (Fioricet 325-50-40) 1 tab Q4H PRN PO HEADACHE Last administered on 09/03/17 08:25; Start 09/02/17 at 18:30 Amlodipine Besylate (Norvasc) 2.5 mg DAILY PO Last administered on 09/03/17 08: 26; Start 09/02/17 at 09:00 Calcium Gluconate 1 gm/Dextrose 110 ml @ 110 mls/hr ONCE ONCE IV Last administered on 09/02/17 16:59; Start 09/02/17 at 16:15; Stop 09/02/17 at 17:14; Status DC Calcium Gluconate 1 gm/Sodium Chloride 110 ml @ 110 mls/hr ONCE ONCE IV Last administered on 09/02/17 10:31; Start 09/02/17 at 09:00; Stop 09/02/17 at 09:59; Status DC Clonidine (Catapres) 0.1 mg ONCE ONCE PO Last administered on 09/02/17 21:45; Start 09/02/17 at 21:15; Stop 09/02/17 at 21:16; Status DC Clopidogrel Bisulfate (Plavix) 75 mg DAILY PO Last administered on 09/03/17 08: 26; Start 09/02/17 at 09:00 Dextrose (D50w (Syr) Inj) 25 ml ONCE ONCE IV PUSH Last administered on 16:58; Start 09/02/17 at 16:15; Stop 09/02/17 at 16:24; Status DC Dextrose (D50w (Vial) Inj) 50 ml ONCE ONCE IV PUSH Last administered on at 23:14; Start 09/01/17 at 22:45; Stop 09/01/17 at 22:46; Status DC Furosemide (Lasix) 20 mg DAILY PO Last administered on 09/03/17at 08:26; Start at 09:00 Gabapentin (Neurontin) 600 mg HS PO ; Start 09/02/17 at 21:00 Heparin Sodium (Porcine) (Heparin Inj) 5,000 units Q8H SQ Last administered on 09/03/17at 06:53; Start 09/01/17 at 23:15 Hydralazine HCl (Apresoline Inj) 20 mg Q4H PRN IV PUSH SBP>180 or >100; Start 09/02/17 at 16:30 Insulin Human Regular (NovoLIN R INJ) 5 units ONCE ONCE IV PUSH Last administered on 09/02/17at 16:57; Start 09/02/17 at 16:15; Stop 09/02/17 at 16:25; Status DC Morphine Sulfate (Oramorph Sr) 15 mg ONCE ONCE PO Last administered on at 00:00; Start 09/02/17 at 23:45; Stop 09/02/17 at 23:50; Status DC Naloxone HCl (Narcan Inj) 0.4 mg UNSCH PRN IV PUSH SEE LABEL COMMENTS; Start at 23:15 Ondansetron HCl (Zofran Inj) 4 mg Q6H PRN IVP NAUSEA OR VOMITING Last administered on 09/03/17at 06:53; Start 09/01/17 at 23:15 Patient Own Medication PT OWN MED: FIORICE... Q4H PRN PO HEADACHE; Start at 18:30; Stop 09/02/17 at 18:30; Status DC Promethazine HCl (Phenergan Supp) 25 mg Q4H PRN RECTAL nasuea or emesis Last administered on 09/02/17at 12:14; Start 09/02/17 at 11:45 Sodium Polystyrene Sulfonate (Kayexalate Liq) 15 gm ONCE ONCE PO ; Start at 09:00; Stop 09/02/17 at 09:03; Status DC Sodium Chloride (NS Flush) 2 ml BID IV FLUSH Last administered on 09/03/17at 08: 27; Start 09/02/17 at 09:00 A/P Assessment and Plan Hyperkalemia -resolved- -will monitor. Acute renal failure -No baseline. -Will continue with IV fluids, strict ins and outs, and avoid nephrotoxins. Continue to trend creatinine. -nephrology consulted. fever - CXR and UA not-impressive. -denies any symptoms. -will monitor the temps for now. Hypertension; will increase amlodipine to 5 mg po daily. CHF/CAD -Continue home Lasix, Plavix Fibromyalgia/lupus/rheumatoid arthritis/chronic pain -Continue home morphine dosing -Continue home gabapentin Discharge Planning possible dc home tomorrow if renal function and BP stable. Graciela Lisa MD Sep 03, 2017 09:58
[2017-09-03] MEDS: MORPHINE SULFATE 100 MG CONTROLLED RELEASE TAB PO SCH ×2 (11:08→23:29)
--- NOTE | 2017-09-03 14:28 | PD.CONS ---
HPI Service Nephrology Consult Requested By Dr. Price Reason for Consult Acute and chronic kidney disease Primary Care Physician Non-Staff History of Present Illness Patient is a 61-year-old white female with history of lupus, rheumatoid arthritis, chronic kidney disease, hypertension who is here for family visit and felt sick, they are related to admission she had fever and chills, she got confused as well, she had some swelling in the extremities, initial investigation showed the proteinuria, creatinine is 2.3, she had hyperkalemia 6.1 And this was treated with potassium is now 4.7, patient has diffuse joint pains and body aches due to underlying rheumatoid arthritis and takes morphine and Percocet. Review of Systems Constitutional: COMPLAINS OF: Fatigue, Fever Respiratory: COMPLAINS OF: Shortness of breath Cardiovascular: COMPLAINS OF: Lower Extremity Edema Gastrointestinal: COMPLAINS OF: Anorexia Musculoskeletal: COMPLAINS OF: Joint pain, Muscle aches, Stiffness, Back pain, Neck pain Neurologic: COMPLAINS OF: Abnormal gait Psychiatric: COMPLAINS OF: Anxiety Past Family Social History Allergies: Coded Allergies: Penicillins (Verified Allergy, Intermediate, 09/01/17) Past Medical History Fibromyalgia Lupus COPD on 2 L nasal cannula CAD CHF HTN CK D stage III Rheumatoid arthritis Seizure disorder (last seizure 25 years ago) Macular degeneration Past Surgical History Pleurodesis Appendectomy Tonsillectomy Bilateral oophorectomy Reported Medications Reported Meds & Active Scripts Active Reported Percocet (Oxycodone-Acetaminophen) 5-325 mg Tab 1 Tab PO Q4H PRN Fioricet (Qlckkvhpzp-Gewaggwrkwsdj-Uiaurklu) 50-300-40 Mg Cap 1 Cap PO Q4H PRN Prednisone (21) 10 mg tab Dose Pack (Prednisone) 10 Mg Pack 10 Mg PO DIRECTED Nitrostat SL (Nitroglycerin) 0.4 Mg Subl 0.4 Mg SL DIRECTED PRN 1 tablet under the tongue as needed for chest pain. Repeat every 5 minutes for a total of 3 DOSES or call 911 if NO relief. Morphabond ER 12 HR (Morphine Sulfate) 100 Mg Tab 100 Mg PO Q12H Lasix (Furosemide) 20 Mg Tab 20 Mg PO DAILY Xanax (Alprazolam) 0.5 Mg Tab 0.5 Mg PO Q6H PRN Zofran (Ondansetron HCl) 4 Mg Tab 4 Mg PO Q6HR PRN Gabapentin 600 Mg Tab 600 Mg PO HS Gabapentin 300 Mg Cap 300 Mg PO BID Plavix (Clopidogrel Bisulfate) 75 Mg Tab 75 Mg PO DAILY Aspir-81 (Aspirin) 81 Mg Tabdr Amlodipine (Amlodipine Besylate) 2.5 Mg Tab 2.5 Mg PO DAILY Active Ordered Medications Current Medications Medications (Trade) Dose Ordered Sig/Adelfo Route Start Time Stop Time Status Last Admin (NS Flush) 2 ml UNSCH PRN IV FLUSH 09/01/17 23:15 (NS Flush) 2 ml BID IV FLUSH 09/02/17 09:00 09/03/17 08:27 (Tylenol) 650 mg Q4H PRN PO 09/01/17 23:15 09/02/17 16:57 (Zofran Inj) 4 mg Q6H PRN IVP 09/01/17 23:15 09/03/17 06:53 (Heparin Inj) 5,000 units Q8H SQ 09/01/17 23:15 09/03/17 13:54 (Narcan Inj) 0.4 mg UNSCH PRN IV PUSH 09/01/17 23:15 (Plavix) 75 mg DAILY PO 09/02/17 09:00 09/03/17 08:26 (Lasix) 20 mg DAILY PO 09/02/17 09:00 09/03/17 08:26 (Neurontin) 300 mg BID PO 09/02/17 09:00 09/03/17 08:26 (Neurontin) 600 mg HS PO 09/02/17 21:00 (Phenergan Supp) 25 mg Q4H PRN RECTAL 09/02/17 11:45 09/02/17 12:14 (Apresoline Inj) 20 mg Q4H PRN IV PUSH 09/02/17 16:30 (Fioricet 325-50-40) 1 tab Q4H PRN PO 09/02/17 18:30 09/03/17 13:53 (Oramorph Sr) 100 mg Q12H PO 09/03/17 12:00 09/03/17 11:08 (Norvasc) 5 mg DAILY PO 09/04/17 09:00 (Xanax) 0.5 mg Q8HR PRN PO 09/03/17 10:00 Family History Noncontributory Social History Denies smoking or alcohol use Physical Exam Vital Signs Vital Signs Date Time Temp Pulse Resp B/P (MAP) Pulse Ox O2 Delivery O2 Flow Rate FiO2 09/03/17 12:00 98.6 83 18 157/84 (108) 97 09/03/17 09:27 157/86 (109) 09/03/17 09:20 Nasal Cannula 2.00 09/03/17 08:00 100.8 85 22 195/92 (126) 97 09/03/17 04:02 87 09/03/17 04:00 98.9 75 16 137/67 (90) 98 09/03/17 00:00 98.6 72 16 140/68 (92) 98 09/03/17 00:00 69 09/02/17 20:59 Nasal Cannula 2.00 09/02/17 20:00 99.2 76 15 183/86 (118) 99 09/02/17 20:00 74 09/02/17 16:01 97.5 79 16 176/90 (118) 98 09/02/17 15:50 80 Physical Exam GENERAL: Ill-appearing well-developed patient. SKIN: Warm and dry. HEAD: Normocephalic. EYES: No scleral icterus. No injection or drainage. NECK: Supple, trachea midline. No JVD or lymphadenopathy. CARDIOVASCULAR: Regular rate and rhythm without murmurs, gallops, or rubs. RESPIRATORY: Diminished at bases with few crackles GASTROINTESTINAL: Abdomen soft, non-tender, nondistended. EXTREMITIES: No cyanosis, or edema. NEUROLOGICAL: Awake, alert, and oriented x 3. Non-focal. Laboratory Laboratory Tests Test 09/02/17 14:33 09/03/17 03:57 Potassium Level 6.1 4.7 White Blood Count 5.0 Red Blood Count 2.75 Hemoglobin 8.2 Hematocrit 25.1 Mean Corpuscular Volume 91.2 Mean Corpuscular Hemoglobin 29.9 Mean Corpuscular Hemoglobin Concent 32.8 Red Cell Distribution Width 14.4 Platelet Count 178 Mean Platelet Volume 8.4 Blood Urea Nitrogen 29 Creatinine 2.32 Random Glucose 77 Total Protein 6.1 Calcium Level 7.3 Sodium Level 140 Chloride Level 110 Carbon Dioxide Level 21.6 Anion Gap 8 Estimat Glomerular Filtration Rate 21 Protein Corrected Calcium 7.8 Complement C3 65 Complement C4 17 Date/Time Source Procedure Growth Status 09/01/17 21:20 Blood Peripheral Aerobic Blood Culture - Preliminary NO GROWTH IN 2 DAYS Resulted 09/01/17 21:20 Blood Peripheral Anaerobic Blood Culture - Preliminary NO GROWTH IN 2 DAYS Resulted 09/01/17 21:20 Nasal Washing Influenza Types A,B Antigen ([facility]) - Final NEGATIVE FOR FLU A AND B ANTIGEN.... Complete Result Diagram: 09/03/17 0357 09/03/17 0357 Imaging Last Impressions Renal Ultrasound 09/02/17 0000 Signed Impressions: Service Date/Time: Saturday, September 02, 2017 09:14 - CONCLUSION: 1. Slightly echogenic and is which can be seen with medical renal disease. 2. Bilateral renal cysts. Pacheco Viera MD Chest X-Ray 09/01/172111 Signed Impressions: Service Date/Time: Friday, September 01, 2017 21:30 - CONCLUSION: Mild bibasilar atelectasis. Silver Beckett MD Assessment and Plan Problem List: (1) Acute renal failure ICD Codes: N17.9 - Acute kidney failure, unspecified Plan: Patient appears to have underlying lupus she does have proteinuria and C3 is low, she has RBCs in the urine She is on prednisone I will increase the dose, I will give Solu-Medrol 125 mg 1 and increase prednisone to 20 mg twice a day I discussed that a definite diagnosis can be made by kidney biopsy, problem list she is taking Plavix and this needs to be discontinued for at least 5 days She stated she is also seen Dr. Emily Sauceda who has the following her in [place] and would like to follow with her as soon as she gets discharged Continue to monitor renal function Once she is better she can be discharged to follow up with own mechanical fitter (2) CKD (chronic kidney disease) stage 4, GFR 15-29 ml/min ICD Codes: N18.4 - Chronic kidney disease, stage 4 (severe) Plan: Likely underlying lupus (3) Lupus (systemic lupus erythematosus) ICD Codes: M32.9 - Systemic lupus erythematosus, unspecified Plan: Taking steroids continue to monitor Sneha Kate MD Sep 03, 2017 14:28
[2017-09-03] MEDS ORDERED: methylPREDNISolone SOD SUCC 125 MG/2 ML VIAL IV PUSH ONE (14:30)
[2017-09-03] MEDS: ALPRAZolam 0.5 MG TAB PO PRN (16:10)
[2017-09-03 17:10] LABS: ANA SCREEN POS (NEG)
[2017-09-03] MEDS: PROMETHAZINE HCL 25 MG SUPP RECTAL PRN (20:38)
[2017-09-03] MEDS: predniSONE 20 MG TAB PO SCH (20:40)
[2017-09-03 21:57] LABS: ALB/GLOB RATIO (SPE) 0.59 (1.39-2.23)
[2017-09-04] VITALS: PULSE 65
[2017-09-04] MEDS: ONDANSETRON HCL 4 MG/2 ML VIAL IVP PRN ×2 (00:37→06:36)
[2017-09-04] MEDS: ACETAMIN 325 MG/BUTALBITAL 50 MG/CAFFEINE 40 MG TAB PO PRN ×2 (00:38→04:24)
[2017-09-04] MEDS: ALPRAZolam 0.5 MG TAB PO PRN (05:10)
[2017-09-04 05:45] LABS: AUTOMATED NEUTROPHIL # 3.8 TH/MM3 (1.8-7.7); BASOPHIL % 0.4 % (0.0-2.0); EOSINOPHIL % 0.2 % (0.0-4.0); HEMOGLOBIN 8.9 GM/DL (11.6-15.3); LYMPH % 22.5 % (9.0-44.0); LYMPHOCYTE # 1.2 TH/MM3 (1.0-4.8); MEAN CELL VOLUME 91.1 FL (80.0-100.0); MEAN CORPUSCULAR HEMOGLOBIN 30.1 PG (27.0-34.0); MEAN CORPUSCULAR HGB CONC 33.1 % (32.0-36.0); MEAN PLATELET VOLUME 8.4 FL (7.0-11.0); MONO % 4.6 % (0.0-8.0); MONOCYTE # 0.2 TH/MM3 (0-0.9); NEUT % 72.3 % (16.0-70.0); PLATELET COUNT 200 TH/MM3 (150-450); RED BLOOD COUNT 2.96 MIL/MM3 (4.00-5.30); RED CELL DISTRIBUTION WIDTH 14.2 % (11.6-17.2); WHITE BLOOD COUNT 5.2 TH/MM3 (4.0-11.0)
[2017-09-04 06:04] LABS: CALCIUM 7.7 MG/DL (8.5-10.1); CREATININE 2.49 MG/DL (0.50-1.00)
[2017-09-04] MEDS: HEPARIN SODIUM - SQ 10,000 UNITS/ML VIAL SQ SCH (06:38)
[2017-09-04 08:00] VITALS: BP 138/78; PULSE 62; RESP 16; TEMP 98.1; O2SAT 98
[2017-09-04] MEDS: CLOPIDOGREL 75 MG TAB PO SCH (08:15)
[2017-09-04] MEDS: GABAPENTIN 300 MG CAP PO SCH (08:15)
[2017-09-04] MEDS: FUROSEMIDE 20 MG TAB PO SCH (08:16)
[2017-09-04] MEDS: SODIUM CHLORIDE 0.9% FLUSH 10 ML FLUSH IV FLUSH SCH (08:16)
[2017-09-04] MEDS ORDERED: amLODIPine BESYLATE 5 MG TAB PO SCH (09:00)
[2017-09-04] MEDS: predniSONE 20 MG TAB PO SCH (09:00)
--- NOTE | 2017-09-04 09:27 | HHI.PR ---
Subjective Remarks in no acute distress. overall doing better. anxious to go home today. Objective Vitals Vital Signs Date Time Temp Pulse Resp B/P (MAP) Pulse Ox O2 Delivery O2 Flow Rate FiO2 09/04/17 08:00 98.1 62 16 138/78 (98) 98 09/04/17 00:00 65 09/03/17 20:00 76 09/03/17 20:00 Nasal Cannula 2.00 09/03/17 20:00 100.4 78 18 169/78 (108) 95 09/03/17 16:00 100.1 78 16 142/78 (99) 96 09/03/17 12:00 98.6 83 18 157/84 (108) 97 09/03/17 09:27 157/86 (109) I/O 09/03/17 09/03/17 09/03/17 09/04/17 09/04/17 09/04/17 07:00 15:00 23:00 07:00 15:00 23:00 Intake Total 450 ml 480 ml Output Total 750 ml Balance 450 ml -270 ml Intake Oral 450 ml 480 ml Output Urine Total 750 ml # Voids 2 # Bowel Movements 0 1 Result Diagram: 09/04/17 0439 09/04/17 0439 Imaging Last Impressions Renal Ultrasound 09/02/17 0000 Signed Impressions: Service Date/Time: Saturday, September 02, 2017 09:14 - CONCLUSION: 1. Slightly echogenic and is which can be seen with medical renal disease. 2. Bilateral renal cysts. Pacheco Viera MD Chest X-Ray 09/01/172111 Signed Impressions: Service Date/Time: Friday, September 01, 2017 21:30 - CONCLUSION: Mild bibasilar atelectasis. Silver Beckett MD Objective Remarks GENERAL: This is a well-nourished, well-developed patient, in no apparent distress. CARDIOVASCULAR: Regular rate and regular rhythm without murmurs, gallops, or rubs. RESPIRATORY: Clear to auscultation. Breath sounds equal bilaterally. No wheezes , rales, or rhonchi. GASTROINTESTINAL: Abdomen soft, non-tender, nondistended. Normal, active bowel sounds MUSCULOSKELETAL: Extremities without clubbing, cyanosis, or edema. NEURO: Alert & Oriented x4 to person, place, time, situation. Moves all ext x4 Medications and IVs Inpatient Medications Acetaminophen (Tylenol) 650 mg Q4H PRN PO TEMP > 100.4 Last administered on 09/02at 16:57; Start 09/01/17 at 23:15 Acetaminophen/ Butalbital/ Caffeine (Fioricet 325-50-40) 1 tab Q4H PRN PO HEADACHE Last administered on 09/04/17at 04:24; Start 09/02/17 at 18:30 Alprazolam (Xanax) 0.5 mg Q8HR PRN PO ANXIETY Last administered on 09/04/17 05: 10; Start 09/03/17 at 10:00 Amlodipine Besylate (Norvasc) 2.5 mg ONCE ONCE PO Last administered on at 11:08; Start 09/03/17 at 09:45; Stop 09/03/17 at 10:07; Status DC Calcium Gluconate 1 gm/Dextrose 110 ml @ 110 mls/hr ONCE ONCE IV Last administered on 09/02/17at 16:59; Start 09/02/17 at 16:15; Stop 09/02/17 at 17:14; Status DC Calcium Gluconate 1 gm/Sodium Chloride 110 ml @ 110 mls/hr ONCE ONCE IV Last administered on 09/02/17at 10:31; Start 09/02/17 at 09:00; Stop 09/02/17 at 09:59; Status DC Clonidine (Catapres) 0.1 mg ONCE ONCE PO Last administered on 09/02/17at 21:45; Start 09/02/17 at 21:15; Stop 09/02/17 at 21:16; Status DC Clopidogrel Bisulfate (Plavix) 75 mg DAILY PO Last administered on 09/04/17at 08: 15; Start 09/02/17 at 09:00 Dextrose (D50w (Syr) Inj) 25 ml ONCE ONCE IV PUSH Last administered on at 16:58; Start 09/02/17 at 16:15; Stop 09/02/17 at 16:24; Status DC Dextrose (D50w (Vial) Inj) 50 ml ONCE ONCE IV PUSH Last administered on at 23:14; Start 09/01/17 at 22:45; Stop 09/01/17 at 22:46; Status DC Furosemide (Lasix) 20 mg DAILY PO Last administered on 09/04/17 08:16; Start at 09:00 Gabapentin (Neurontin) 600 mg HS PO Last administered on 09/03/17at 20:39; Start 09/02/17 at 21:00 Heparin Sodium (Porcine) (Heparin Inj) 5,000 units Q8H SQ Last administered on 09/04/17 06:38; Start 09/01/17 at 23:15 Hydralazine HCl (Apresoline Inj) 20 mg Q4H PRN IV PUSH SBP>180 or >100; Start 09/02/17 at 16:30 Insulin Human Regular (NovoLIN R INJ) 5 units ONCE ONCE IV PUSH Last administered on 09/02/17 16:57; Start 09/02/17 at 16:15; Stop 09/02/17 at 16:25; Status DC Methylprednisolone Sodium Succinate (SoluMEDROL INJ) 125 mg ONCE ONCE IV PUSH Last administered on 09/03/17at 16:11; Start 09/03/17 at 14:30; Stop 09/03/17 at 14: 31; Status DC Morphine Sulfate (Oramorph Sr) 15 mg ONCE ONCE PO Last administered on at 00:00; Start 09/02/17 at 23:45; Stop 09/02/17 at 23:50; Status DC Naloxone HCl (Narcan Inj) 0.4 mg UNSCH PRN IV PUSH SEE LABEL COMMENTS; Start at 23:15 Ondansetron HCl (Zofran Inj) 4 mg Q6H PRN IVP NAUSEA OR VOMITING Last administered on 09/04/17at 06:36; Start 09/01/17 at 23:15 Patient Own Medication PT OWN MED: FIORICE... Q4H PRN PO HEADACHE; Start at 18:30; Stop 09/02/17 at 18:30; Status DC Prednisone (Deltasone) 20 mg BID PO ; Start 09/03/17 at 21:00 Promethazine HCl (Phenergan Supp) 25 mg Q4H PRN RECTAL nasuea or emesis Last administered on 09/03/17at 20:38; Start 09/02/17 at 11:45 Sodium Polystyrene Sulfonate (Kayexalate Liq) 15 gm ONCE ONCE PO ; Start at 09:00; Stop 09/02/17 at 09:03; Status DC Sodium Chloride (NS Flush) 2 ml BID IV FLUSH Last administered on 09/04/17at 08: 16; Start 09/02/17 at 09:00 A/P Assessment and Plan Hyperkalemia -resolved- -will monitor. renal insufficiency- likely chronic due to lupus -No baseline. -continue prednisone; will discharge on prednisone 20 mg bid till her f/u with her nephrology within the next 1-2 weeks. -nephrology consult appreciated. fever- likely due to lupus - CXR and UA not-impressive. -denies any symptoms. Hypertension; continue amlodipine . CHF/CAD -Continue home Lasix, Plavix Fibromyalgia/lupus/rheumatoid arthritis/chronic pain -Continue home morphine dosing -Continue home gabapentin Discharge Planning dc home today if ok with nephrology. see med list. f/u; pcp and nephrology. d/w the patient and RN. Graciela Lisa MD Sep 04, 2017 09:27
[2017-09-04] MEDS ORDERED: PRED5TAB PO ×2 (09:29→09:33)
[2017-09-04] MEDS ORDERED: AMLO5 PO (09:29)
--- NOTE | 2017-09-04 09:32 | HHI.DS ---
Discharge Summary Admission Date Sep 02, 2017 at 09:58 Discharge Date: Sep 04, 2017 Admitting Diagnosis renal insufficiency, hyperkalemia (1) Acute renal failure ICD Code: N17.9 - Acute kidney failure, unspecified Diagnosis: Principal (2) Lupus (systemic lupus erythematosus) ICD Code: M32.9 - Systemic lupus erythematosus, unspecified Diagnosis: Principal (3) Hyperkalemia ICD Code: E87.5 - Hyperkalemia Diagnosis: Principal Status: Acute Procedures none Brief History - From Admission 61-year-old female with multiple medical comorbidities (see past medical history for details) presents to the emergency department for evaluation of multiple complaints. Per the patient's daughter, she had fever/chills earlier in the day. She then went to lay down without her oxygen for approximately 1 hour and became disoriented and confused. Her daughter reports she was mumbling and not making sense. She was brought to the emergency room for evaluation. The patient denies chest pain/shortness of breath. She endorses fatigue and chronic pain no worse than usual. On evaluation in the emergency department the patient was found to be hyperkalemic with a potassium of 6.1. CBC/BMP: 09/04/17 0439 09/04/17 0439 Significant Findings Laboratory Tests Test 09/01/17 21:20 09/01/17 22:38 09/02/17 04:38 09/02/17 14:33 Red Blood Count 3.19 MIL/MM3 (4.00-5.30) 2.71 MIL/MM3 (4.00-5.30) Hemoglobin 9.6 GM/DL (11.6-15.3) 8.1 GM/DL (11.6-15.3) Hematocrit 29.3 % (35.0-46.0) 25.1 % (35.0-46.0) Neutrophils (%) (Auto) 86.6 % (16.0-70.0) 76.1 % (16.0-70.0) Lymphocytes (%) (Auto) 8.0 % (9.0-44.0) Neutrophils # (Auto) 8.9 TH/MM3 (1.8-7.7) Lymphocytes # (Auto) 0.8 TH/MM3 (1.0-4.8) Blood Urea Nitrogen 26 MG/DL (7-18) 30 MG/DL (7-18) Creatinine 1.80 MG/DL (0.50-1.00) 2.17 MG/DL (0.50-1.00) Albumin 2.4 GM/DL (3.4-5.0) Calcium Level 7.5 MG/DL (8.5-10.1) 7.4 MG/DL (8.5-10.1) Alkaline Phosphatase 152 U/L (45-117) Total Bilirubin LESS THAN 0.1 MG/DL Potassium Level 6.1 MEQ/L (3.5-5.1) 6.1 MEQ/L (3.5-5.1) 6.1 MEQ/L (3.5-5.1) Chloride Level 112 MEQ/L (98-107) 113 MEQ/L (98-107) Carbon Dioxide Level 20.8 MEQ/L (21.0-32.0) Estimat Glomerular Filtration Rate 28 ML/MIN (>89) 23 ML/MIN (>89) Troponin I LESS THAN 0.02 NG/ML B-Type Natriuretic Peptide 209 PG/ML (0-100) Urine Protein 300 mg/dL (NEG-TRACE) Urine Occult Blood MOD (NEG) Urine RBC 34 /hpf (0-3) Total Protein 5.9 GM/DL (6.4-8.2) Protein Corrected Calcium 8.1 MG/DL (8.5-10.1) Test 09/03/17 03:57 09/03/17 17:02 09/04/17 04:39 Red Blood Count 2.75 MIL/MM3 (4.00-5.30) 2.96 MIL/MM3 (4.00-5.30) Hemoglobin 8.2 GM/DL (11.6-15.3) 8.9 GM/DL (11.6-15.3) Hematocrit 25.1 % (35.0-46.0) 27.0 % (35.0-46.0) Blood Urea Nitrogen 29 MG/DL (7-18) 35 MG/DL (7-18) Creatinine 2.32 MG/DL (0.50-1.00) 2.49 MG/DL (0.50-1.00) Total Protein 6.1 GM/DL (6.4-8.2) Calcium Level 7.3 MG/DL (8.5-10.1) 7.7 MG/DL (8.5-10.1) Chloride Level 110 MEQ/L (98-107) Estimat Glomerular Filtration Rate 21 ML/MIN (>89) 20 ML/MIN (>89) Protein Corrected Calcium 7.8 MG/DL (8.5-10.1) Albumin 2.12 GM/DL (3.50-5.00) Albumin/Globulin Ratio 0.59 (1.39-2.23) Ksdzl-5-Gyeiirwet 1.09 GM/DL (0.22-1.00) Gamma Globulins 1.46 GM/DL (0.50-1.39) Anti-Nuclear Antibody Screen POS (NEG) Complement C3 65 MG/DL (90-180) Erythrocyte Sedimentation Rate 76 mm/hr (0-30) C-Reactive Protein 6.40 MG/DL (0.00-0.30) Neutrophils (%) (Auto) 72.3 % (16.0-70.0) PE at Discharge GENERAL: This is a well-nourished, well-developed patient, in no apparent distress. CARDIOVASCULAR: Regular rate and regular rhythm without murmurs, gallops, or rubs. RESPIRATORY: Clear to auscultation. Breath sounds equal bilaterally. No wheezes , rales, or rhonchi. GASTROINTESTINAL: Abdomen soft, non-tender, nondistended. Normal, active bowel sounds MUSCULOSKELETAL: Extremities without clubbing, cyanosis, or edema. NEURO: Alert & Oriented x4 to person, place, time, situation. Moves all ext x4 Hospital Course patient was admitted with renal insufficiency and hyperkalemia. she was started on IV fluid- hyperkalemia resolved and her renal function remained fairly stable - this is likely due to her history of Lupus. she will be discharged home on prednisone and f/u with her pcp and nephrology. she was evaluated by nephrology during this admission. Pt Condition on Discharge: Fair Discharge Disposition: Discharge Home Discharge Time: <= 30 minutes Discharge Instructions DIET: Follow Instructions for: Heart Healthy Diet Activities you can perform: Regular-No Restrictions Graciela Lisa MD Sep 04, 2017 09:32
--- NOTE | 2017-09-04 11:14 | HHI.NPPN ---
Subjective History of Present Illness 61 year old with lupus ARF/CKD Interval History she felt better after Solu-Medrol and Prednisone Additional Remarks wants to go home follow up with own MD Objective Data Data Vital Signs Date Time Temp Pulse Resp B/P (MAP) Pulse Ox O2 Delivery O2 Flow Rate FiO2 09/04/17 08:00 98.1 62 16 138/78 (98) 98 09/04/17 08:00 98 Nasal Cannula 2.00 09/04/17 00:00 65 09/03/17 20:00 76 09/03/17 20:00 Nasal Cannula 2.00 09/03/17 20:00 100.4 78 18 169/78 (108) 95 09/03/17 16:00 100.1 78 16 142/78 (99) 96 09/03/17 12:00 98.6 83 18 157/84 (108) 97 -: 09/04/17 0439 09/04/17 0439 Physical Exam General Appearance: Well Developed Eyes Eye Exam: Pupils Equal Neck Neck Exam: Neck Supple Pulmonary Resp Exam: Decreased Bases Cardiology CV Exam: Regular Gastrointestinal/Abdomen GI Exam: Soft, Non-Tender, Bowel Sounds Present Integumentary Skin Exam: Clear Extremeties Extremities Exam: No Edema Assessment/Plan Problem List: (1) Acute renal failure ICD Codes: N17.9 - Acute kidney failure, unspecified Plan: Patient appears to have underlying lupus she does have proteinuria and C3 is low, she has RBCs in the urine, C reactive protein high, ESR High, CHRISTIN pos She is on prednisone I have increase the dose,given Solu-Medrol 125 mg 1 and increase prednisone to 20 mg twice a day until she follows with own MD I discussed that a definite diagnosis can be made by kidney biopsy, problem list she is taking Plavix and this needs to be discontinued for at least 5 days She stated she is also seen Dr. Emily Sauceda who has the following her in [place] and would like to follow with her as soon as she gets discharged Continue to monitor renal function she can be discharged to follow up with own [place] [employer] (2) CKD (chronic kidney disease) stage 4, GFR 15-29 ml/min ICD Codes: N18.4 - Chronic kidney disease, stage 4 (severe) Plan: Likely underlying lupus (3) Lupus (systemic lupus erythematosus) ICD Codes: M32.9 - Systemic lupus erythematosus, unspecified Plan: Taking steroids continue to monitor Sneha Kate MD Sep 04, 2017 11:14
[2017-09-04] MEDS ORDERED: PRED20 PO (11:51)
[2017-09-04] MEDS: MORPHINE SULFATE 100 MG CONTROLLED RELEASE TAB PO SCH (12:09)
[2017-09-05 14:09] LABS: ANA PATTERN SPECKLED
== END 2017-09-04 12:19 | disposition home or self-care (01) | DRG 683 ==
LOC: NEPE 20:54 → NEDA 22:49 → NEPGCP 23:59 → OBSVTOIN 09-02 09:58 → N07B 09-02 18:45
PROVIDERS: ADMIT Family Medicine; ATTEND Internal Medicine
DX: N17.9 Acute kidney failure, unspecified (principal); I13.0 Hypertensive heart and chronic kidney disease with heart failure and stage 1 through stage 4 chronic kidney disease, or unspecified chronic kidney disease; I50.9 Heart failure, unspecified; M32.9 Systemic lupus erythematosus, unspecified; I25.10 Atherosclerotic heart disease of native coronary artery without angina pectoris; E87.5 Hyperkalemia; G89.29 Other chronic pain; M06.9 Rheumatoid arthritis, unspecified; M79.7 Fibromyalgia; H35.30 Unspecified macular degeneration; G40.909 Epilepsy, unspecified, not intractable, without status epilepticus; N18.4 Chronic kidney disease, stage 4 (severe); R50.9 Fever, unspecified; J44.9 Chronic obstructive pulmonary disease, unspecified; D64.9 Anemia, unspecified; Z87.891 Personal history of nicotine dependence; Z95.5 Presence of coronary angioplasty implant and graft; Z88.0 Allergy status to penicillin
CPT/HCPCS: 71045; 76775; 80048; 80053; 81001; 82550; 82948; 83880; 84132; 84155; 84165; 84484; 85025; 85027; 85652; 85730; 86021; 86038; 86039; 86140; 86160; 87040; 87804; 93005; 96374; 96375; G0378; J0610; J1644; J1815; J2405; J2930; J7512